=== PATIENT | female | born 1965 | race American Indian/Alaskan Native ===

== ENCOUNTER 2021-04-14 13:18 | Emergency (ER) | payer OTHER ==
[2021-04-14 16:34] VITALS: BP 128/74
--- NOTE | 2021-04-14 17:51 | XRay Report ---
THORACIC SPINE 3 VIEWS LUMBAR SPINE 3 VIEWS SACRUM AND COCCYX 3 VIEWS INDICATION: severe back pain. COMPARISON: No relevant prior imaging study available. FINDINGS: Thoracic spine: Thoracic vertebral body height is maintained. There is mild mid to lower thoracic spo ndylosis. Alignment is normal. Lumbar spine: Lumbar vertebral body height and disc space height is maintained. No fracture is seen. Alignment is normal. Sacrum/coccyx: SI joints are within normal limits. No fracture is identified. There is questionable m ild diastases at the sacrococcygeal junction. Numerous phleboliths are noted in the lower pelvis. IMPRESSION: 1. No acute fracture is seen. 2. Questionable mild diastases of the sacrococcygeal junction is of uncertain chronicity. Has there b een recent injury to this region Signer Name: Linden Al MD Signed: 04/14/2021 5:47 PM Workstation Name: [id number]
--- NOTE | 2021-04-14 18:51 | Emergency Department Report ---
ED Back Pain/Injury HPI - General Chief Complaint: Back Pain/Injury Stated Complaint: SEVERE BACK PAIN Time Seen by Provider: 04/14/21 16:36 Source: patient Limitations: No Limitations - History of Present Illness Initial Comments: 56-year-old -Burmese female presents to the emergency room for back pain that radiates down her right leg. Patient states that she had a calcaneal fracture of her left foot in January and she started having severe back pain. Patient states that she was seen by a flower planter for her left foot but her back is giving her more pain. She denies any urinary or bowel incontinent. Patient states that she just cannot get comfortable sitting or standing. MD Complaint: back pain Onset/Timin -: week(s) Similar Symptoms Previously: No Radiation: right leg Severity scale (0 -10): 10 Quality: sharp, stabbing Consistency: constant Improves With: none - Related Data Previous Rx's Medication Instructions Recorded Last Taken Type Ibuprofen [Motrin 800 MG tab] 800 mg PO Q8HR PRN #30 tablet 04/14/21 Unknown Rx predniSONE [Deltasone] 40 mg PO QDAY #8 tab 04/14/21 Unknown Rx Allergies Allergy/AdvReac Type Severity Reaction Status Date / Time Latex, Natural Rubber Allergy Rash Verified 04/14/21 16:14 Penicillins Allergy Itching Verified 04/14/21 16:13 sulfacetamide Allergy Rash Verified 04/14/21 16:13 [From Sulfamide] ED Review of Systems ROS: Stated complaint: SEVERE BACK PAIN Other details as noted in HPI Comment: All other systems reviewed and negative ED Past Medical Hx - Past Medical History Previous Medical History?: Yes Hx GERD: Yes - Surgical History Past Surgical History?: Yes Additional Surgical History: hyst, TL - Medications Home Medications: Home Medications Medication Instructions Recorded Confirmed Last Taken Type Ibuprofen [Motrin 800 MG tab] 800 mg PO Q8HR PRN #30 tablet 04/14/21 Unknown Rx predniSONE [Deltasone] 40 mg PO QDAY #8 tab 04/14/21 Unknown Rx ED Physical Exam - General Limitations: No Limitations General appearance: alert, in no apparent distress - Head Head exam: Present: atraumatic, normocephalic - Eye Eye exam: Present: normal appearance - ENT ENT exam: Present: normal external ear exam - Neck Neck exam: Present: normal inspection, full ROM - Respiratory Respiratory exam: Absent: accessory muscle use - Cardiovascular Cardiovascular Exam: Present: regular rate - Expanded Back Exam Expanded Back exam: Sciatic Notch Tenderness: Right, Positive Straight Leg Raise: Right - Neurological Exam Neurological exam: Present: alert, oriented X3, abnormal gait - Psychiatric Psychiatric exam: Present: normal affect, normal mood - Skin Skin exam: Present: warm, dry, intact, normal color. Absent: rash ED Course Vital Signs 04/14/21 16:16 Temperature 98.2 F Pulse Rate 92 H Respiratory 18 Rate Blood Pressure 128/74 [Right] O2 Sat by Pulse 99 Oximetry ED Medical Decision Making - Radiology Data Radiology results: report reviewed [facility] [address] [place] [address] XRay Report Signed Patient: HIRAM PRICE MR#: [id number] 4 : 1965 Acct:[id number] Age/Sex: 56 / F ADM Date: 04/14/21 Loc: ED Attending Dr: Ordering Physician: KARLA WEINSTEIN Date of Service: 04/14/21 Procedure(s): XR spine lumbosacral 2-3V Accession Number(s): [id number] cc: KARLA WEINSTEIN Fluoro Time In Minutes: THORACIC SPINE 3 VIEWS LUMBAR SPINE 3 VIEWS SACRUM AND COCCYX 3 VIEWS INDICATION: severe back pain. COMPARISON: No relevant prior imaging study available. FINDINGS: Thoracic spine: Thoracic vertebral body height is maintained. There is mild mid to lower thoracic spondylosis. Alignment is normal. Lumbar spine: Lumbar vertebral body height and disc space height is maintained. No fracture is seen. Alignment is normal. Sacrum/coccyx: SI joints are within normal limits. No fracture is identified. There is questionable mild diastases at the sacrococcygeal junction. Numerous phleboliths are noted in the lower pelvis. IMPRESSION: 1. No acute fracture is seen. 2. Questionable mild diastases of the sacrococcygeal junction is of uncertain chronicity. Has there been recent injury to this region Signer Name: Linden Al MD Signed: 04/14/2021 5:47 PM Workstation Name: [id number] Transcribed By: Dictated By: Linden Al MD Electronically Authenticated By: Linden Al MD Signed Date/Time: 04/14/211746 DD/ 42 TD/TT: Print Cancel - Medical Decision Making 56-year-old -Burmese female presents to the emergency room for back pain that radiates down her right leg. Patient states that she had a calcaneal fracture of her left foot in January and she started having severe back pain. Patient states that she was seen by a flower planter for her left foot but her back is giving her more pain. She denies any urinary or bowel incontinent. Patient states that she just cannot get comfortable sitting or standing. X-rays completed shows no fractures or acute abnormalities. Discussed with patient she most likely has sciatica or radiculopathy pain. We will place patient on ibuprofen and prednisone referral to orthopedics. Critical care attestation.: If time is entered above; I have spent that time in minutes in the direct care of this critically ill patient, excluding procedure time. ED Disposition Clinical Impression: Back pain, Back pain with left-sided radiculopathy Disposition: HOME / SELF CARE / HOMELESS Is pt being admited?: No Does the pt Need Aspirin: No Condition: Stable Instructions: Acute Back Pain, Adult, Radicular Pain Additional Instructions: X-ray of the back's are negative for any acute abnormalities. You most likely are having sciatica as well as maybe your back is compensating from your left heel fracture and your gait could be off. I do recommend that she follow-up with an orthopedic provider as they can recommend physical therapy for you. Prescriptions: predniSONE [Deltasone] 40 mg PO QDAY #8 tab Ibuprofen [Motrin 800 MG tab] 800 mg PO Q8HR PRN #30 tablet PRN Reason: Pain , Severe (7-10) Referrals: TOMAS CROWE MD [Staff Physician] - 3-5 Days Forms: Work/School Release Form(ED)
== END 2021-04-14 19:02 | disposition home or self-care (01) ==
LOC: ED 13:18
DX: M54.14 Radiculopathy, thoracic region (principal); K21.9 Gastro-esophageal reflux disease without esophagitis; Z79.899 Other long term (current) drug therapy; Z91.040 Latex allergy status; Z91.048 Other nonmedicinal substance allergy status; Z88.8 Allergy status to other drugs, medicaments and biological substances; Z90.710 Acquired absence of both cervix and uterus; Z98.890 Other specified postprocedural states
CPT/HCPCS: 72070; 72100; 72220

== ENCOUNTER 2021-10-15 01:36 | Emergency (ER) | payer SELFPAY ==
[2021-10-15 01:53] VITALS: BP 156/93
[2021-10-15] MEDS ORDERED: IBUPROFEN 600 MG TAB PO ONE (02:02)
[2021-10-15] MEDS ORDERED: ACETAMINOPHEN 500 MG TAB PO ONE (02:02)
--- NOTE | 2021-10-15 02:45 | XRay Report ---
LEFT FOOT 3 VIEWS INDICATION / CLINICAL INFORMATION: left small toe pain COMPARISON: None available. FINDINGS: BONES / JOINT(S): There is a minimally displaced fracture through the shaft of the proximal phalanx o f the fifth toe. There is no additional acute fracture seen. No significant arthritis. SOFT TISSUES: There is mild soft tissue swelling in the fifth toe. ADDITIONAL FINDINGS: None. Signer Name: Linden Al MD Signed: 10/15/2021 2:41 AM Workstation Name: [id number]
--- NOTE | 2021-10-15 03:04 | Emergency Department Report ---
ED Lower Extremity HPI - General Chief Complaint: Extremity Injury, Lower Stated Complaint: POSSIBLE LEFT PINKY TOE BROKEN Source: patient Mode of arrival: Ambulatory Limitations: No Limitations - History of Present Illness Initial Comments: Patient is a 56-year-old -Israeli male with a history of GERD who presents to the ED with complaint of acute onset persistent severe left lateral foot and fifth toe pain after she accidentally bumped onto stairs while walking up stairs in her room about 4 hours ago. Patient states that the pain is constant and persistent and worse with ambulation or weightbearing. Patient denies fall, head or neck injuries, back pain, chest pain or shortness of breath, nausea and vomiting, numbness and tingling or weakness of left foot. MD Complaint: foot injury (left foot and 5th toe pain) -: Sudden, hour(s) (4) Injury: Foot: Left (Lateral left foot), Toes: Left (Left fifth toe) Type of Injury: blunt Place: home Severity: severe Severity scale (0 -10): 7 Improves With: nothing Worsens With: weight bearing, movement, palpation Context: direct blow Associated Symptoms: snap/pop sensation, swelling, able to partially bear weight. denies: numbness, tingling, unable to bear weight - Related Data Previous Rx's Medication Instructions Recorded Last Taken Type Ibuprofen [Motrin 800 MG tab] 800 mg PO Q8HR PRN #30 tablet 04/14/21 Unknown Rx predniSONE [Deltasone] 40 mg PO QDAY #8 tab 04/14/21 Unknown Rx Acetaminophen/Codeine [Tylenol 1 tab PO Q6H PRN #12 tab 10/15/21 Unknown Rx /Codeine # 3 tab] Ibuprofen [Motrin] 800 mg PO Q8HR PRN #30 tablet 10/15/21 Unknown Rx Allergies Allergy/AdvReac Type Severity Reaction Status Date / Time Latex, Natural Rubber Allergy Rash Verified 04/14/21 16:14 Penicillins Allergy Itching Verified 04/14/21 16:13 sulfacetamide Allergy Rash Verified 04/14/21 16:13 [From Sulfamide] ED Review of Systems ROS: Stated complaint: POSSIBLE LEFT PINKY TOE BROKEN Other details as noted in HPI Constitutional: denies: chills, fever Eyes: denies: eye pain, eye discharge, vision change ENT: denies: ear pain, throat pain Respiratory: denies: cough, shortness of breath, wheezing Cardiovascular: denies: chest pain, palpitations Endocrine: no symptoms reported Gastrointestinal: denies: abdominal pain, nausea, diarrhea Genitourinary: denies: urgency, dysuria, discharge Musculoskeletal: joint swelling (Left fifth toe swelling and pain), arthralgia (Left lateral foot and fifth toe pain with mild swelling). denies: back pain Skin: denies: rash, lesions Neurological: denies: headache, weakness, paresthesias Psychiatric: denies: anxiety, depression Hematological/Lymphatic: denies: easy bleeding, easy bruising ED Past Medical Hx - Past Medical History Previous Medical History?: Yes Hx GERD: Yes - Surgical History Additional Surgical History: hyst, TL - Social History Smoking Status: Never Smoker Substance Use Type: None - Medications Home Medications: Home Medications Medication Instructions Recorded Confirmed Last Taken Type Ibuprofen [Motrin 800 MG tab] 800 mg PO Q8HR PRN #30 tablet 04/14/21 Unknown Rx predniSONE [Deltasone] 40 mg PO QDAY #8 tab 04/14/21 Unknown Rx Acetaminophen/Codeine [Tylenol 1 tab PO Q6H PRN #12 tab 10/15/21 Unknown Rx /Codeine # 3 tab] Ibuprofen [Motrin] 800 mg PO Q8HR PRN #30 tablet 10/15/21 Unknown Rx ED Physical Exam - General Limitations: No Limitations General appearance: alert, in no apparent distress - Head Head exam: Present: atraumatic, normocephalic, normal inspection - Eye Eye exam: Present: normal appearance, PERRL, EOMI Pupils: Present: normal accommodation - ENT ENT exam: Present: normal exam, normal orophraynx, mucous membranes moist, TM's normal bilaterally, normal external ear exam - Neck Neck exam: Present: normal inspection, full ROM - Respiratory Respiratory exam: Present: normal lung sounds bilaterally. Absent: respiratory distress, wheezes, rales, rhonchi, stridor, chest wall tenderness, accessory muscle use, decreased breath sounds, other - Cardiovascular Cardiovascular Exam: Present: normal rhythm, tachycardia, normal heart sounds. Absent: systolic murmur, diastolic murmur, rubs, gallop - GI/Abdominal GI/Abdominal exam: Present: soft, normal bowel sounds. Absent: tenderness, guarding, hyperactive bowel sounds, hypoactive bowel sounds, mass, bruit - Extremities Exam Extremities exam: Present: normal inspection, full ROM, tenderness (Palpable distal left fifth toe tenderness with mild swelling and left lateral foot tenderness), normal capillary refill, joint swelling. Absent: pedal edema, calf tenderness - Back Exam Back exam: Present: normal inspection, full ROM. Absent: tenderness, CVA tenderness (R), CVA tenderness (L), muscle spasm, paraspinal tenderness, vertebral tenderness - Neurological Exam Neurological exam: Present: alert, oriented X3, CN II-XII intact, normal gait, reflexes normal - Psychiatric Psychiatric exam: Present: normal affect, normal mood - Skin Skin exam: Present: warm, dry, intact, normal color. Absent: rash ED Course Vital Signs 10/15/21 01:40 Temperature 98.3 F Pulse Rate 101 H Respiratory 20 Rate Blood Pressure 156/93 O2 Sat by Pulse 99 Oximetry ED Lower Extremity MDM - Radiology Data Radiology results: report reviewed, image reviewed [facility] [address] [place] [address] XRay Report Signed Patient: HIRAM PRICE MR#: [id number] 4 : 1965 Acct:[id number] Age/Sex: 56 / F ADM Date: 10/15/21 Loc: ED Attending Dr: Ordering Physician: JYOTHI MARIE Date of Service: 10/15/21 Procedure(s): XR foot 3+V LT Accession Number(s): [id number] cc: JYOTHI MARIE Fluoro Time In Minutes: LEFT FOOT 3 VIEWS INDICATION / CLINICAL INFORMATION: left small toe pain COMPARISON: None available. FINDINGS: BONES / JOINT(S): There is a minimally displaced fracture through the shaft of the proximal phalanx of the fifth toe. There is no additional acute fracture seen. No significant arthritis. SOFT TISSUES: There is mild soft tissue swelling in the fifth toe. ADDITIONAL FINDINGS: None. Signer Name: Linden Al MD Signed: 10/15/2021 2:41 AM Workstation Name: [id number] Transcribed By: WILLIAM Dictated By: Linden Al MD Electronically Authenticated By: Linden Al MD Signed Date/Time: 10/15/21240 DD/ 9 TD/TT: - Medical Decision Making This is a 56-year-old -Israeli male with a history of GERD who presents to the ED with complaint of acute onset persistent severe left lateral foot and fifth toe pain after she accidentally bumped onto stairs while walking up stairs in her room about 4 hours ago. Patient states that the pain is constant and persistent and worse with ambulation or weightbearing. In the ED, patient is alert and oriented x3 and is not in any distress. Patient was treated for pain in the ED and left foot x-ray showed a minimally displaced fracture through the shaft of the proximal phalanx of the fifth toe. There is no additional acute fracture seen. No significant arthritis. There is mild soft tissue swelling in the fifth toe. Left fifth toe was kimmy taped onto left fourth toe and the patient also fitted with postop shoe. Patient was discharged home on pain medications and given a referral to the orthopedic surgeon on-call Dr. New for further evaluation. Patient was advised to contact Dr. New's office first thing in the morning on Saturday, October 16, 2021 to schedule a follow-up appointment. Patient is advised return to the ED immediately if symptoms get worse. - Differential Diagnosis Foot fracture; toe fracture; toe sprain; muscle strain; foot contusion Critical care attestation.: If time is entered above; I have spent that time in minutes in the direct care of this critically ill patient, excluding procedure time. ED Disposition Clinical Impression: Displaced fracture of proximal phalanx of lesser toe of left foot Qualifiers: Encounter type: initial encounter Fracture type: closed Qualified Code(s): S92.512A - Displaced fracture of proximal phalanx of left lesser toe(s), initial encounter for closed fracture Contusion of left foot including toes Qualifiers: Encounter type: initial encounter Qualified Code(s): S90.32XA - Contusion of left foot, initial encounter; S90.122A - Contusion of left lesser toe(s) without damage to nail, initial encounter Disposition: 01 HOME / SELF CARE / HOMELESS Is pt being admited?: No Does the pt Need Aspirin: No Condition: Stable Instructions: Toe Fracture, [id number], Foot Contusion, [id number], Cast or Splint Care, Adult, [id number], Crush Injury of the Foot, [id number] Additional Instructions: the x-ray of your left foot showed a minimally displaced fracture through the shaft of the proximal phalanx of the fifth toe. There is no additional acute fracture seen. No significant arthritis. Therefore take pain medications with food as needed, follow-up with the orthopedic surgeon Dr. New as advised. Contact his office first thing in the morning on Saturday, October 16, 2021 to schedule a follow-up appointment. Return to the ED immediately if symptoms get worse. Prescriptions: Ibuprofen [Motrin] 800 mg PO Q8HR PRN #30 tablet PRN Reason: Pain , Severe (7-10) Acetaminophen/Codeine [Tylenol /Codeine # 3 tab] 1 tab PO Q6H PRN #12 tab PRN Reason: Pain , Severe (7-10) Referrals: ALYCIA NEW MD [Staff Physician] - 3-5 Days Forms: Work/School Release Form(ED) Time of Disposition: 03:08 Print Language: MOHAWK
== END 2021-10-15 03:47 | disposition home or self-care (01) ==
LOC: ED 01:36
DX: S92.512A Displaced fracture of proximal phalanx of left lesser toe(s), initial encounter for closed fracture (principal); S90.122A Contusion of left lesser toe(s) without damage to nail, initial encounter; S90.32XA Contusion of left foot, initial encounter; K21.9 Gastro-esophageal reflux disease without esophagitis; Z90.710 Acquired absence of both cervix and uterus; Z98.51 Tubal ligation status; Z88.0 Allergy status to penicillin; Z91.040 Latex allergy status; Z88.1 Allergy status to other antibiotic agents; W22.8XXA Striking against or struck by other objects, initial encounter; Y93.01 Activity, walking, marching and hiking; Y92.89 Other specified places as the place of occurrence of the external cause; Y99.8 Other external cause status
CPT/HCPCS: 99283

== ENCOUNTER 2022-05-05 12:19 | Emergency (ER) | payer SELFPAY ==
[2022-05-05 18:17] LABS: Basophils % (Auto) 0.7 % (0.0-1.8); Eosinophils % (Auto) 0.3 % (0.0-4.3); Hematocrit 34.8 % (30.3-42.9); Hemoglobin 11.3 gm/dl (10.1-14.3); Lymphocytes % (Auto) 52.9 % (13.4-35.0); Mean Corpuscular HGB Conc 32 % (30-34); Mean Corpuscular Volume 85 fl (79-97); Monocytes # (Auto) 0.4 K/mm3 (0.0-0.8); Monocytes % (Auto) 6.9 % (0.0-7.3); Platelet Count 287 K/mm3 (140-440); Red Blood Count 4.11 M/mm3 (3.65-5.03); Red Cell Distribution Width 15.4 % (13.2-15.2)
[2022-05-05 18:35] LABS: Alanine Aminotransferase 13 units/L (7-56); Albumin 4.5 g/dL (3.9-5); BUN/Creatinine Ratio 24; Blood Urea Nitrogen 24 mg/dL (7-17); Calcium 9.3 mg/dL (8.4-10.2); Hemolysis Index 4
--- NOTE | 2022-05-05 18:42 | Emergency Department Report ---
ED General Adult HPI - General Chief complaint: Extremity Injury, Lower Stated complaint: LEFT LEG PAIN Time Seen by Provider: 05/05/22 17:05 Source: patient Mode of arrival: Ambulatory Limitations: No Limitations - History of Present Illness Initial comments: Patient is a 57-year-old female who presents with pain in the left medial thigh area. She states back in February she was putting a trampoline frame together and cut herself on a sharp edge of the metal frame. At the time there was minimal bleeding but there is been pain in the area since the injury. Then in March she noticed some red dots around the edge of the wound and thought little of it, however she is continue to have pain in the area. She does have a history of DVT and states that the pain is sharp and shooting similar to when she had a previous DVT. She denies any swelling. No other recent risk factors for DVT other than her previous DVT and the trauma. Improves with: none Worsens with: movement Associated Symptoms: denies: confusion, chest pain, cough, diaphoresis, fever/chills, loss of appetite, malaise, nausea/vomiting, rash, seizure, shortness of breath, syncope, weakness - Related Data Previous Rx's Medication Instructions Recorded Last Taken Type Ibuprofen [Motrin 800 MG tab] 800 mg PO Q8HR PRN #30 tablet 04/14/21 Unknown Rx predniSONE [Deltasone] 40 mg PO QDAY #8 tab 04/14/21 Unknown Rx Acetaminophen/Codeine [Tylenol 1 tab PO Q6H PRN #12 tab 10/15/21 Unknown Rx /Codeine # 3 tab] Ibuprofen [Motrin] 800 mg PO Q8HR PRN #30 tablet 10/15/21 Unknown Rx DOXYCYCLINE Hyclate [Vibramycin 100 mg PO Q12HR 7 Days #14 capsule 05/05/22 Unknown Rx CAP] Ibuprofen [Motrin 600 MG tab] 600 mg PO Q8H PRN #20 tablet 05/05/22 Unknown Rx Allergies Allergy/AdvReac Type Severity Reaction Status Date / Time Latex, Natural Rubber Allergy Rash Verified 05/05/22 12:24 Penicillins Allergy Itching Verified 05/05/22 12:24 sulfacetamide Allergy Rash Verified 05/05/22 12:24 [From Sulfamide] ALMONDS Allergy Shortness Uncoded 05/05/22 12:25 of Breath BEE STING Allergy Itching Uncoded 05/05/22 12:25 ED Review of Systems ROS: Stated complaint: LEFT LEG PAIN AND SWELLING Other details as noted in HPI Constitutional: denies: chills, fever Eyes: denies: eye pain, eye discharge, vision change ENT: denies: ear pain, throat pain Respiratory: denies: cough, shortness of breath, wheezing Cardiovascular: denies: chest pain, palpitations Endocrine: no symptoms reported Gastrointestinal: denies: abdominal pain, nausea, diarrhea Genitourinary: denies: urgency, dysuria, discharge Musculoskeletal: denies: back pain, joint swelling, arthralgia Skin: as per HPI Neurological: denies: headache, weakness, paresthesias Psychiatric: denies: anxiety, depression Hematological/Lymphatic: denies: easy bleeding, easy bruising ED Past Medical Hx - Past Medical History Previous Medical History?: No Hx Deep Vein Thrombosis: Yes Hx GERD: Yes - Surgical History Additional Surgical History: hyst, TL - Social History Smoking Status: Never Smoker Substance Use Type: None - Medications Home Medications: Home Medications Medication Instructions Recorded Confirmed Last Taken Type Ibuprofen [Motrin 800 MG tab] 800 mg PO Q8HR PRN #30 tablet 04/14/21 Unknown Rx predniSONE [Deltasone] 40 mg PO QDAY #8 tab 04/14/21 Unknown Rx Acetaminophen/Codeine [Tylenol 1 tab PO Q6H PRN #12 tab 10/15/21 Unknown Rx /Codeine # 3 tab] Ibuprofen [Motrin] 800 mg PO Q8HR PRN #30 tablet 10/15/21 Unknown Rx DOXYCYCLINE Hyclate [Vibramycin 100 mg PO Q12HR 7 Days #14 capsule 05/05/22 Unknown Rx CAP] Ibuprofen [Motrin 600 MG tab] 600 mg PO Q8H PRN #20 tablet 05/05/22 Unknown Rx ED Physical Exam - General Limitations: No Limitations General appearance: alert, in no apparent distress - Head Head exam: Present: atraumatic, normocephalic - Eye Eye exam: Present: normal appearance - ENT ENT exam: Present: mucous membranes moist - Neck Neck exam: Present: normal inspection - Respiratory Respiratory exam: Present: normal lung sounds bilaterally. Absent: respiratory distress - Cardiovascular Cardiovascular Exam: Present: regular rate, normal rhythm. Absent: systolic murmur, diastolic murmur, rubs, gallop - GI/Abdominal GI/Abdominal exam: Present: soft, normal bowel sounds - Extremities Exam Extremities exam: Present: normal inspection - Expanded Lower Extremity Exam Left Hip exam: Present: normal inspection, full ROM Upper Leg exam: Present: full ROM, tenderness, abrasion (Healed abrasion left medial thigh with no surrounding erythema or swelling but it is tender to touch. No palpable cord.). Absent: swelling, ecchymosis, deformity, crepidus, di slocation, erythema Knee exam: Present: normal inspection, full ROM Lower Leg exam: Present: normal inspection, full ROM. Absent: tenderness, swelling, abrasion, erythema, palpable cord, Sahil's sign Neuro vascular tendon exam: Present: no vascular compromise. Absent: pulse deficit, abnormal cap refill, motor deficit, sensory deficit, tendon deficit, extremity cold to touch, pallor, abnormal 2-point discrimination, decreased fine/light touch, foot drop, peroneal nerve deficit, significant pain with passive ROM of distal joint Gait: Positive: observed and normal - Back Exam Back exam: Present: normal inspection - Neurological Exam Neurological exam: Present: alert, oriented X3 - Psychiatric Psychiatric exam: Present: normal affect, normal mood - Skin Skin exam: Present: warm, dry, intact, normal color. Absent: rash ED Course Vital Signs 05/05/22 12:22 Temperature 98.8 F Pulse Rate 121 H Respiratory 18 Rate Blood Pressure 132/88 O2 Sat by Pulse 99 Oximetry ED Medical Decision Making - Medical Decision Making Patient with recent minor trauma to the left medial thigh with continued pain and history of DVT presents with normal did not dimer normal white count and normal CRP. Exam is fairly unremarkable with only point tenderness at an area that has scarred over from 2 months ago. There is no sore surrounding erythema or warmth. No palpable cord. Will treat with short course of antibiotics and have her follow-up with her primary care doctor. Critical care attestation.: If time is entered above; I have spent that time in minutes in the direct care of this critically ill patient, excluding procedure time. ED Disposition Clinical Impression: Healing wound, Leg pain, medial Disposition: 01 HOME / SELF CARE / HOMELESS Is pt being admited?: No Condition: Stable Instructions: Pain Without a Known Cause, Wound Infection Additional Instructions: Warm compresses to the area. Antibiotics. Anti-inflammatories. Follow-up with primary care doctor. Prescriptions: Ibuprofen [Motrin 600 MG tab] 600 mg PO Q8H PRN #20 tablet PRN Reason: Pain DOXYCYCLINE Hyclate [Vibramycin CAP] 100 mg PO Q12HR 7 Days #14 capsule Referrals: BRANDAN CAMARA MD [Staff Physician] - 3-5 Days Forms: Work/School Release Form(ED) Time of Disposition: 18:59
[2022-05-05] MEDS ORDERED: DOXYCYCLINE 100 MG CAP PO SCH (18:49)
[2022-05-05] MEDS ORDERED: IBUPROFEN 600 MG TAB PO ONE (18:51)
[2022-05-05 19:20] VITALS: BP 122/78
== END 2022-05-05 20:00 | disposition home or self-care (01) ==
LOC: ED 12:19
DX: M79.605 Pain in left leg (principal); Z91.040 Latex allergy status; Z88.0 Allergy status to penicillin; Z88.2 Allergy status to sulfonamides; Z91.010 Allergy to peanuts
CPT/HCPCS: 36415; 80053; 85025; 85379; 86140; 99283